=== PATIENT | female | born 1940 | race Caucasian/White ===

== ENCOUNTER → 2016-12-10 | Outpatient (CLI) | payer MEDICARE, OTHER | END | disposition home or self-care (01) | LOC: GMAB 10:54 | PROVIDERS: ATTEND Family Medicine | DX: E03.9 Hypothyroidism, unspecified (principal); R30.0 Dysuria ==

== ENCOUNTER → 2017-07-22 | Outpatient (CLI) | payer MEDICARE, OTHER ==
--- NOTE | 2017-07-22 16:42 | US ---
EXAM DESCRIPTION: Carotid Duplex CLINICAL HISTORY: I65.23 COMPARISON: None Available. TECHNIQUE: Carotid Doppler ultrasound FINDINGS: Right Submitted images show no significant stenosis in the common carotid, internal carotid or external carotid arteries. Extensive calcified plaque at the right carotid bifurcation. Axial images show 42% area narrowing of the right carotid bulb and 50% narrowing of the right ICA above the bulb. The following flow velocities were obtained: Common carotid artery peak systolic flow velocity measures 83 centimeters per second. Internal carotid artery peak systolic flow velocity measures 58 centimeters per second. External carotid artery peak systolic flow velocity measures 108 centimeters per second. Flow in the right vertebral artery is antegrade. The right internal carotid to common carotid peak systolic flow velocity ratio equals 0.7 which is normal. Left Submitted images show normal caliber of the left common carotid, internal carotid and external carotid arteries with no significant stenosis. Arteriosclerotic plaque is seen in the upper left CCA with calcified plaque at the left carotid bifurcation. Axial images show 39% area stenosis of the upper left common carotid artery with 77% area stenosis of the ICA above the bulb. The following flow velocities were obtained: Common carotid artery peak systolic flow velocity measures 82 centimeters per second. Internal carotid artery peak systolic flow velocity measures 85 centimeters per second. External carotid artery peak systolic flow velocity measures 55 centimeters per second. Flow in the left vertebral artery is antegrade. The left internal carotid to common carotid peak systolic flow velocity ratio of 1.0 is normal. IMPRESSION: No significantly elevated flow velocities to suggest hemodynamically significant stenosis. Transverse images show 50% area narrowing of the right ICA above the bulb and 77% area narrowing of the left ICA above the bulb. Electronically signed by: Tommy Perez MD 07/22/2017 4:41 PM CDT
== END ==
LOC: US 09:42
PROVIDERS: ATTEND Family Medicine
DX: I65.23 Occlusion and stenosis of bilateral carotid arteries (principal); R55 Syncope and collapse

== ENCOUNTER → 2017-08-14 | Outpatient (CLI) | payer MEDICARE, OTHER ==
--- NOTE | 2017-08-14 15:37 | CT ---
EXAM DESCRIPTION: CTA Neck: Computed Tomography. CLINICAL HISTORY: OCCLUSION AND STENOSIS OF BILATERAL CAROTID ARTERY COMPARISON: Ultrasound carotid duplex study 07/22/2017. TECHNIQUE: Spiral, axial 2.5 mm scans through the neck soft tissues after bolus infusion of IV contrast. Coronal and sagittal 2.0 mm reconstructions. 3D volume rendering and HD MIP images rotating around the craniocaudal axis . Percentage of stenosis recorded will be based upon NASCET criteria. Total Exam DLP: 667.49 mGy-cm. This exam was performed according to our departmental CT dose-optimization program which includes automated exposure control, adjustment of the mA and/or kV according to patient size and/or use of iterative reconstruction technique; to reduce radiation dose to as low as reasonably achievable (ALARA). FINDINGS: Minimal calcification of the origin of the right common carotid artery with tortuosity of the origin of the left common carotid. Intimal wall thickening distal left CCA posteriorly with approximately 19% diameter stenosis. Less than 20% diameter stenosis of the proximal left ICA by atherosclerotic plaque. Slightly more distally there is a 43% diameter stenosis caused by atherosclerotic plaque with tortuosity of the vessel. Atherosclerotic plaque on the medial wall of the proximal right ICA with approximately 20% diameter stenosis. Minimal tortuosity of the proximal right ICA. Bilateral atherosclerotic plaque in the carotid siphons with approximately 25% diameter stenosis in the left ICA just before exiting the clinoid. Bilateral ICAs with normal bifurcations and proximal THIERNO and MCA vessels appear symmetric. No significant stenosis, no aneurysm, mass effect, or vasculitis. Bilateral vertebral arteries with customary origins minimal calcification at the ostia of the left vertebral artery. No significant narrowing or calcification through the vertebral foramen coursing into the base of the skull. Left vertebral artery is slightly dominant. Major branch vessels extending from the vertebral basilar system are unremarkable. Posterior communicating arteries are not seen bilaterally. No significant stenoses, no aneurysm, mass effect, or vasculitis. Cervical spondylosis atlantoaxial joint C4-5, C5-6, and C6-7 with significant bilateral foraminal narrowing at C6-7. Spine is also kyphotic. Included in bilateral upper lung shows small reticular nodular densities and mosaic density bilaterally. No significant soft tissue abnormalities from the upper mediastinum to the base of the skull in the included scanned regions. Small physiologic lymph nodes. Airway included from the nasopharynx to the upper trachea shows no significant effacement or displacement except minimal asymmetry in the left tonsillar area. Included mastoid and paranasal air cells show no significant disease. IMPRESSION: 1. Approximately 43% diameter stenosis of the proximal left ICA with tortuosity. This is not hemodynamically significant. Other stenoses in the ICAs bilaterally are smaller. Vertebral basilar system is unremarkable. No aneurysms, mass effect, or vasculitis. No significant stenosis. 2. Cervical spondylosis at 3 levels. Correlate for cervical radiculopathy. 3. Chronic pulmonary process bilateral upper lobes, correlate with clinical history. Electronically signed by: Олег Pop MD 08/14/2017 3:36 PM CDT
== END ==
LOC: CT 09:00
PROVIDERS: ATTEND Family Medicine
DX: I65.23 Occlusion and stenosis of bilateral carotid arteries (principal); M48.02 Spinal stenosis, cervical region

== ENCOUNTER → 2017-11-21 | Outpatient (CLI) | payer MEDICARE, OTHER | LOC: GMAE 15:08 | PROVIDERS: ATTEND Family Medicine | DX: E03.9 Hypothyroidism, unspecified (principal) ==

== ENCOUNTER → 2018-02-21 | Outpatient (CLI) | payer MEDICARE, OTHER ==
--- NOTE | 2018-02-21 09:06 | US ---
EXAM DESCRIPTION: Renal ultrasound CLINICAL HISTORY: 77 years Female, N18.9 COMPARISON: None. TECHNIQUE: Retroperitoneal sonogram was performed to evaluate the kidneys and bladder. FINDINGS: Right kidney Right renal length is 9.1 cm. Renal cortical thinning is seen at the upper and lower poles but the echogenicity of the renal parenchyma is within normal limits. No right renal mass, cyst or shadowing stone. No hydronephrosis. Left kidney Left renal length is 9.3 cm. Renal cortical thickness and echogenicity are overall normal. Some areas of focal renal cortical scarring are present. No left renal mass, cyst or shadowing stone. No hydronephrosis. Urinary bladder No images of the urinary bladder are submitted. No retroperitoneal images of aorta or inferior vena cava. IMPRESSION: Bilateral renal scarring/senescent changes. No hydronephrosis. Electronically signed by: Tommy Perez MD 02/21/2018 9:04 AM [employer]
== END ==
LOC: LAB.O 08:33
PROVIDERS: ATTEND Internal Medicine Nephrology
DX: N18.4 Chronic kidney disease, stage 4 (severe) (principal)

== ENCOUNTER → 2018-04-28 | Outpatient (CLI) | payer MEDICARE, OTHER ==
--- NOTE | 2018-04-28 12:58 | CT ---
EXAM DESCRIPTION: Head CLINICAL HISTORY: CONTUSION COMPARISON: CT head January 27, 2007, CT angiography of the neck August 14, 2017 TECHNIQUE: Noncontrast head CT was performed with routine protocol. FINDINGS: Soft tissue hematoma of the left frontal scalp is seen anterior to the frontal sinus which measures 1.6 cm. This appears acute, not seen on previous study. Normal orbital contents. Bone window images show intact frontal bone and frontal sinuses with no fracture. Hyperostosis frontalis interna is incidentally noted. Normal martinez-white matter differentiation. Ventricles and sulci are normal for age. No high density hemorrhage, focal edema or shift of the midline. No sulcal effacement. Normal orbital contents. Basilar cisterns appear clear. Intact calvarium with no fracture or lytic lesion. Normal aeration of tympanic cavities and mastoid air cells. No fluid levels in the paranasal sinuses. Skull base appears intact. Symmetrical internal auditory canals. IMPRESSION: Left frontal soft tissue hematoma. Negative for skull fracture. No acute intracranial pathologic process. This exam was performed according to our departmental dose-optimization program, which includes automated exposure control, adjustment of the mA and/or kV according to patient size and/or use of iterative reconstruction technique. Electronically signed by: Tommy Perez MD 04/28/2018 12:56 PM [facility]
== END ==
LOC: CT 11:59
PROVIDERS: ATTEND Family Medicine
DX: S00.83XA Contusion of other part of head, initial encounter (principal)

== ENCOUNTER → 2018-06-16 | Outpatient (CLI) | payer MEDICARE, OTHER | LOC: GMAE 10:59 | PROVIDERS: ATTEND Family Medicine | DX: E03.9 Hypothyroidism, unspecified (principal) ==

== ENCOUNTER → 2018-12-17 | Outpatient (CLI) | payer MEDICARE, OTHER | LOC: GMAE 10:20 | PROVIDERS: ATTEND Family Medicine | DX: E03.9 Hypothyroidism, unspecified (principal); I10 Essential (primary) hypertension; E78.49 Other hyperlipidemia ==

== ENCOUNTER → 2019-02-23 | Outpatient (CLI) | payer MEDICARE, OTHER ==
--- NOTE | 2019-02-24 11:09 | MRI ---
EXAM DESCRIPTION: Brain w/o Contrast: MRI. CLINICAL HISTORY: DIZZINESS AND GIDDINESS COMPARISON: MRI scan lumbar without and with gadolinium IV contrast July 2009. TECHNIQUE: Multiplanar, high-field MRI unit, multiple diffusion sequences, multiple conventional sequences without contrast. FINDINGS: Multiple foci of Hyperintense FLAIR and T2-weighted signal in the subcortical white matter of the frontal parietal and occipital lobes, more left than right. Focal larger lesion in the periventricular white matter abutting the posterior right ventricle above the occipital horn.. No hemorrhage, no cerebral edema, no mass-effect. Normal signal in the bilateral basal ganglia. Normal signal in the signal in the brainstem and cerebellar hemispheres. Concordance of the diffusion and non-diffusion sequences with no diffusion restriction. Cortical sulci, ventricles, and other CSF spaces, and the subdural spaces are physiologic in configuration for patient's age.. No effacement or displacement. No midline shift. No extra-axial hemorrhage. Normal flow signal void in the major vessels of the burns paiute Hernandez, and the venous sinuses. IACs are symmetric bilaterally. Normal signal in the bilateral mastoid air cells. No mass effect in the bilateral cerebellopontine angles. Pituitary gland occupies less than 50% of the sella. Fluid signal in the bilateral distal optic nerve sheath abutting the optic globes. Base of the cerebellar tonsils is at the level of the foramen magnum. Minimal mucoperiosteal thickening in the paranasal sinuses.. The bony calvarium is intact; thickening of the inner table of the frontal bone stable. IMPRESSION: 1. More focal subcortical white matter lesions and periventricular white matter lesions, with a predilection of lesions for the left cerebral hemisphere over the right. Stable since the prior study. No mass effect or hemorrhage. Progressive lesion in the right occipital lobe involving the subcortical white matter and periventricular white matter of the right lateral ventricle. No association with mass effect or hemorrhage. 2. Chronic paranasal sinusitis. 3. Chronic hyperostosis frontalis interna, common in elderly women. 4. Edema in the distal optic nerve sheaths and CSF in the pituitary fossa. Can be associated with pseudotumor cerebri in women and obesity. Electronically signed by: Олег Pop MD 02/24/2019 11:08 AM [facility]
== END ==
LOC: GMAE 11:16
PROVIDERS: ATTEND Family Medicine
DX: J32.9 Chronic sinusitis, unspecified (principal); R90.82 White matter disease, unspecified; G93.9 Disorder of brain, unspecified; H47.10 Unspecified papilledema; M85.2 Hyperostosis of skull

== ENCOUNTER → 2019-06-12 | Outpatient (CLI) | payer MEDICARE, OTHER ==
--- NOTE | 2019-06-12 14:43 | US ---
EXAM DESCRIPTION: Venous,Lower Extremity LT (accession [id number]), Venous,Lower Extremity RT (accession [id number]): Ultrasound. CLINICAL HISTORY: DVT COMPARISON: None Available. TECHNIQUE: Two -dimensional and doppler sonographic evaluation of the deep venous system of the bilateral lower extremities. FINDINGS: Doppler evaluation shows normal color flow and normal phasicity and augmentation of the bilateral common femoral veins, junctions with the bilateral proximal saphenous veins, deep femoral veins, femoral veins, popliteal veins, greater and lesser saphenous veins, peroneal anterior tibial posterior tibial veins. These veins showed normal occlusion with transducer pressure. Two-dimensional survey showed no echogenic clot within these veins. Subcutaneous adipose edema, more prevalent right more than left. IMPRESSION: Duplex ultrasound evaluation of the bilateral lower extremity deep venous systems showing no evidence of thrombosis. Edema in the subcutaneous adipose tissue, more right leg more than left. Electronically signed by: Олег Pop MD 06/12/2019 2:41 PM CDT
--- NOTE | 2019-06-12 14:43 | US ---
EXAM DESCRIPTION: Venous,Lower Extremity LT (accession [id number]), Venous,Lower Extremity RT (accession [id number]): Ultrasound. CLINICAL HISTORY: DVT COMPARISON: None Available. TECHNIQUE: Two -dimensional and doppler sonographic evaluation of the deep venous system of the bilateral lower extremities. FINDINGS: Doppler evaluation shows normal color flow and normal phasicity and augmentation of the bilateral common femoral veins, junctions with the bilateral proximal saphenous veins, deep femoral veins, femoral veins, popliteal veins, greater and lesser saphenous veins, peroneal anterior tibial posterior tibial veins. These veins showed normal occlusion with transducer pressure. Two-dimensional survey showed no echogenic clot within these veins. Subcutaneous adipose edema, more prevalent right more than left. IMPRESSION: Duplex ultrasound evaluation of the bilateral lower extremity deep venous systems showing no evidence of thrombosis. Edema in the subcutaneous adipose tissue, more right leg more than left. Electronically signed by: Олег Pop MD 06/12/2019 2:41 PM CDT
== END ==
LOC: US 13:24
PROVIDERS: ATTEND Internal Medicine Nephrology
DX: R60.9 Edema, unspecified (principal); I82.221 Chronic embolism and thrombosis of inferior vena cava

== ENCOUNTER → 2019-07-13 | Outpatient (CLI) | payer MEDICARE, OTHER | LOC: NC 12:48 | PROVIDERS: ATTEND Family Medicine | DX: E03.9 Hypothyroidism, unspecified (principal) ==

== ENCOUNTER → 2019-10-12 | Outpatient (CLI) | payer MEDICARE, OTHER | LOC: NC 13:23 | PROVIDERS: ATTEND Family Medicine | DX: E03.9 Hypothyroidism, unspecified (principal) ==

== ENCOUNTER → 2020-01-12 | Outpatient (CLI) | payer MEDICARE, OTHER | LOC: NC 09:21 | PROVIDERS: ATTEND Family Medicine | DX: E03.9 Hypothyroidism, unspecified (principal); I10 Essential (primary) hypertension; E78.2 Mixed hyperlipidemia ==